=== PATIENT | male | born 1990 | race Caucasian/White ===

== ENCOUNTER 2016-06-17 21:33 | Emergency (ER) | payer SELFPAY | END 2016-06-17 21:58 | disposition home or self-care (01) | LOC: SED 21:33 | DX: S61.412A Laceration without foreign body of left hand, initial encounter (principal); Z23 Encounter for immunization; F17.210 Nicotine dependence, cigarettes, uncomplicated; V00.121A Fall from non-in-line roller-skates, initial encounter; Y92.009 Unspecified place in unspecified non-institutional (private) residence as the place of occurrence of the external cause | CPT/HCPCS: 12001; 90471; 90715; 99283 ==